=== PATIENT | female | born 1980 | race Caucasian/White ===

== ENCOUNTER → 2024-04-26 | Outpatient (CLI) | payer MEDICAID, SELFPAY ==
--- NOTE | 2024-04-26 09:15 | XR_ITS ---
Examination: Abdomen sonogram, complete Date and time of exam: April 26, 2024 0903 hours INDICATIONS: Right upper abdominal pain beginning 2 weeks ago, positive Logan's sign. Technique: Multiple real-time grayscale transabdominal sonographic images of the abdomen have been obtained. Findings: Normal gallbladder Normal common bile duct 0.3 cm Pancreatic head 3.5 cm Aorta not enlarged Liver 15.0 cm smooth contour fatty infiltration no focal liver lesions Normal hepatopedal portal venous flow Patent IVC Right kidney 12.2 x 5.7 x 5.7 cm cortex 1.9 cm Left kidney 12.8 x 5.4 x 6.6 cm renal cortex 2.0 cm Minimal parenchymal scarring no hydronephrosis Spleen 10.5 cm IMPRESSION: Normal gallbladder Prominent pancreatic head, recommend CT scan abdomen pelvis post intravenous contrast follow-up with specific attention to the pancreas
== END | disposition home or self-care (01) ==
DX: K86.89 Other specified diseases of pancreas (principal)
CPT/HCPCS: 76700

== ENCOUNTER → 2024-05-30 | Outpatient (CLI) | payer MEDICAID, SELFPAY ==
--- NOTE | 2024-05-30 10:00 | XR_ITS ---
Examination: CT abdomen with intravenous contrast CT pelvis with intravenous contrast 2-D coronal reconstructions 2-D sagittal reconstructions Date and time of exam:May 30, 2024 1010 hrs. Comparison May 27, 2022 Indications: Right upper abdominal pain left upper abdominal pain constipation this month, diagnosis disease of the pancreas. CTDI: vol (mGy) 29.5 DLP: (mGycm) 918 Technique: Multiple axial sections of the abdomen and pelvis have been obtained. 64 slice high-resolution scanner used. 3 mm axial sections have been obtained, post intravenous injection 60 cc [id number] 2-D sagittal, coronal reconstructions obtained. Low dose protocols were performed. One or more of the following dose reduction techniques were used; automated exposure control, adjustment of the mA and/or KV according to patient size, use of iterative reconstruction technique. Findings: No focal liver or splenic lesions No pancreatic or adrenal mass No gallstones No renal or ureteral calculi, no hydronephrosis 15 mm fat-containing umbilical hernia Normal appendix No bowel obstruction Colonic diverticulosis, no diverticulitis Intact urinary bladder Anteverted uterus 19 mm involuting left ovarian follicular cyst Impression: No renal or ureteral calculi, no hydronephrosis Normal appendix 19 mm involuting left ovarian follicular cyst
== END | disposition home or self-care (01) ==
LOC: CCTX 09:29
DX: N83.02 Follicular cyst of left ovary (principal)
CPT/HCPCS: 74177; A4649; Q9967